=== PATIENT | female | born 1960 | race Caucasian/White ===

== ENCOUNTER 2018-11-16 15:57 | Inpatient (IN) | payer MEDICAID, OTHER ==
[~2018-11-16] VITALS: Ht 167.6 cm; Wt 145.9 kg
--- NOTE | 2018-11-16 16:27 | NUR ---
AT BEDSIDE FOR ASSESSMENT
--- NOTE | 2018-11-16 16:43 | NUR ---
PT TAKEN FOR IMAGING
[2018-11-16] MEDS ORDERED: SODIUM CHLORIDE FLUSH 10ML SYR IVF ONE (17:00)
--- NOTE | 2018-11-16 17:30 | NUR ---
LABS COLLECTED. PT RESTING IN BED, ALL NEDS MET AT THIS TIME, CALL LIGHT WITHIN REACH
[2018-11-16 17:52] LABS: BASOPHILS # (AUTO) 0.01 x10^3/uL (0-0.1); BASOPHILS % (AUTO) 0 % (0-1); EOSINOPHILS # (AUTO) 0.22 x10^3/uL (0-0.4); EOSINOPHILS % (AUTO) 4 % (1-7); LYMPHOCYTES # (AUTO) 1.21 x10^3/uL (1-3.4); LYMPHOCYTES % (AUTO) 19 % (22-44); MD NO; MEAN CORPUSCULAR HEMOGLOBIN 28.8 pg (27.0-34.8); MEAN CORPUSCULAR HGB CONC 32.2 g/dL (32.4-35.8); MEAN CORPUSCULAR VOLUME 89.3 fL (80-100); MEAN PLATELET VOLUME 6.6 fL (7.4-10.4); MONOCYTES # (AUTO) 0.55 x10^3/uL (0.2-0.8); MONOCYTES % (AUTO) 9 % (2-9); NEUTROPHILS # (AUTO) 4.27 x10^3/uL (1.8-6.8); NEUTROPHILS % (AUTO) 68 % (42-75); PLATELET COUNT 277 x10^3/uL (130-400); RED BLOOD COUNT 4.92 x10^6/uL (3.82-5.3); RED CELL DISTRIBUTION WIDTH 15.3 % (9.6-15.2)
[2018-11-16 18:01] LABS: ALANINE AMINOTRANSFERASE 25 U/L (12-78); ALBUMIN 3.2 g/dL (3.4-5.0); ANION GAP 11 mmol/L (5-15); CALCIUM 8.3 mg/dL (8.5-10.1); CHLORIDE 106 mmol/L (98-107); CREATININE 6.42 mg/dL (0.55-1.02)
[2018-11-16 18:03] LABS: ALKALINE PHOSPHATASE 102 U/L (45-117); BILIRUBIN,TOTAL 0.3 mg/dL (0.2-1.0); TOTAL PROTEIN 7.7 g/dL (6.4-8.2)
--- NOTE | 2018-11-16 18:23 | NUR ---
ALL RESULTS BACK AT THIS TIME, CHART UP FOR RECHECK
[2018-11-16] MEDS ORDERED: SODIUM CHLORIDE 0.9% 1,000ML IVBOLUS ONE (18:30)
--- NOTE | 2018-11-16 18:44 | NUR ---
STRAIGHT CATH UA COLLECTED AND SENT TO LAB. FLUIDS STARTED PER OCT. PT HAS BECOME VERY SLEEPY, INTERMITTENT DISORIENTED LANGUAGE BUT THEN PTSTILL A&OX4 WHEN ASKED DIRECT QUESTIONS. SLIGHT HYPOTENSION, FLUIDS RUNNING. WILL CONTINUE TO MONITOR. CALL LIGHT WITHIN REACH. AWAITNG ADMIT ORDER AND TRANSPORT TO FLOOR
[2018-11-16] MEDS ORDERED: LISI40TA PO (18:48)
[2018-11-16] MEDS ORDERED: OXYC-307 PO (18:48)
[2018-11-16] MEDS ORDERED: MORP-52 PO (18:48)
[2018-11-16] MEDS ORDERED: gabapentin (18:48)
[2018-11-16 19:20] LABS: MICROSCOPIC INDICATED
[2018-11-16 19:25] LABS: CULTURE INDICATED? YES
--- NOTE | 2018-11-16 19:41 | NUR ---
ADDITIONAL ORDERS RECEIVED AT THIS TIME. THEN PT TO BE ADMITTED TO [facility]. PT CURRENTLY SLEEPING IN BED, RR EVEN AND UNLABORED. NADN. VSS. CALL LIGHT WITHIN REACH
--- NOTE | 2018-11-16 19:52 | NUR ---
RAD COMPLETED. AWAITING ADMIT ORDER AND TRANSPORT AT THIS TIME
[2018-11-16] MEDS ORDERED: SODIUM CHLORIDE FLUSH 10ML SYR IVF PRN (20:00)
--- NOTE | 2018-11-16 20:12 | NUR ---
REPORT GIVEN TO PAUL RN, PT READY FOR TRANSPORT TO FLOOR
[2018-11-16] MEDS ORDERED: POLYETHYLENE GLYCOL 17 GM PACKET PO PRN (20:30)
[2018-11-16] MEDS ORDERED: BISACODYL 10 MG SUPP PR PRN (20:30)
[2018-11-16] MEDS ORDERED: ONDANSETRON ODT 4 MG PO PRN (20:30)
[2018-11-16] MEDS ORDERED: ACETAMINOPHEN 325 MG TABLET PO PRN (20:30)
[2018-11-16 20:41] VITALS: BP 130/69
[2018-11-16] MEDS ORDERED: FLUCONAZOLE 200 MG/100 ML 100 ML IV ONE (21:00)
[2018-11-16 21:56] LABS: POTASSIUM,URINE RANDOM 22 mmol/L; SODIUM,URINE RANDOM 13 mmol/L
[2018-11-16 22:08] LABS: CHLORIDE,URINE RANDOM < 10 mmol/L
[2018-11-16] MEDS: SODIUM CHLORIDE 0.9% 1,000 ML IV SCH (22:53)
[2018-11-16] MEDS: HEPARIN 5,000 UNITS/ML, 1ML SQ SCH (22:56)
[2018-11-17 00:20] VITALS: BP 115/67
[2018-11-17 05:42] LABS: BASOPHILS # (AUTO) 0.02 x10^3/uL (0-0.1); BASOPHILS % (AUTO) 0 % (0-1); EOSINOPHILS # (AUTO) 0.48 x10^3/uL (0-0.4); EOSINOPHILS % (AUTO) 8 % (1-7); LYMPHOCYTES # (AUTO) 1.65 x10^3/uL (1-3.4); LYMPHOCYTES % (AUTO) 27 % (22-44); MD NO; MEAN CORPUSCULAR HGB CONC 32.2 g/dL (32.4-35.8); MEAN CORPUSCULAR VOLUME 90.1 fL (80-100); MEAN PLATELET VOLUME 6.6 fL (7.4-10.4); MONOCYTES # (AUTO) 0.75 x10^3/uL (0.2-0.8); MONOCYTES % (AUTO) 12 % (2-9); NEUTROPHILS # (AUTO) 3.18 x10^3/uL (1.8-6.8); NEUTROPHILS % (AUTO) 52 % (42-75); PLATELET COUNT 283 x10^3/uL (130-400); RED BLOOD COUNT 4.84 x10^6/uL (3.82-5.3); RED CELL DISTRIBUTION WIDTH 15.8 % (9.6-15.2)
[2018-11-17 05:53] LABS: CHLORIDE 110 mmol/L (98-107)
[2018-11-17 06:08] LABS: ALANINE AMINOTRANSFERASE 25 U/L (12-78); ALBUMIN 2.9 g/dL (3.4-5.0); ALKALINE PHOSPHATASE 98 U/L (45-117); ANION GAP 10 mmol/L (5-15); BILIRUBIN,TOTAL 0.5 mg/dL (0.2-1.0); CALCIUM 7.8 mg/dL (8.5-10.1); CREATININE 5.23 mg/dL (0.55-1.02); TOTAL PROTEIN 7.2 g/dL (6.4-8.2); TROPONIN I < 0.015 ng/mL (0.000-0.045)
[2018-11-17] MEDS: SODIUM CHLORIDE 0.9% 1,000 ML IV SCH (06:33)
[2018-11-17] MEDS: HEPARIN 5,000 UNITS/ML, 1ML SQ SCH ×3 (06:33→21:28)
[2018-11-17 07:17] VITALS: BP 105/59
[2018-11-17] MEDS: SENNA/DOCUSATE TABLET PO SCH (08:16)
[2018-11-17 11:41] LABS: TROPONIN I < 0.015 ng/mL (0.000-0.045)
[2018-11-17] MEDS: SODIUM BICARB 8.4%,50ML SYR. 75 MEQ in SODIUM CHLORIDE 0.45% 1,000 ML IV SCH (11:57)
[2018-11-17 13:17] VITALS: BP 137/77
[2018-11-17 19:18] VITALS: BP 152/63
[2018-11-17] MEDS ORDERED: FLUCONAZOLE 100MG/50ML 100 MG in BAG 1 EACH IV SCH (21:00)
[2018-11-17 22:40] VITALS: BP 178/74
[2018-11-17 22:41] VITALS: BP 157/70
[2018-11-18 00:21] VITALS: BP 163/80
[2018-11-18] MEDS: HEPARIN 5,000 UNITS/ML, 1ML SQ SCH ×2 (04:53→13:00)
[2018-11-18] MEDS: SODIUM BICARB 8.4%,50ML SYR. 75 MEQ in SODIUM CHLORIDE 0.45% 1,000 ML IV SCH (04:53)
[2018-11-18 06:38] LABS: BASOPHILS # (AUTO) 0.01 x10^3/uL (0-0.1); BASOPHILS % (AUTO) 0 % (0-1); EOSINOPHILS % (AUTO) 3 % (1-7); LYMPHOCYTES # (AUTO) 0.82 x10^3/uL (1-3.4); LYMPHOCYTES % (AUTO) 27 % (22-44); MD NO; MEAN CORPUSCULAR HEMOGLOBIN 29.7 pg (27.0-34.8); MEAN CORPUSCULAR HGB CONC 33.7 g/dL (32.4-35.8); MEAN PLATELET VOLUME 6.4 fL (7.4-10.4); MONOCYTES # (AUTO) 0.46 x10^3/uL (0.2-0.8); MONOCYTES % (AUTO) 15 % (2-9); NEUTROPHILS # (AUTO) 1.65 x10^3/uL (1.8-6.8); NEUTROPHILS % (AUTO) 54 % (42-75); PLATELET COUNT 215 x10^3/uL (130-400); RED BLOOD COUNT 4.47 x10^6/uL (3.82-5.3); RED CELL DISTRIBUTION WIDTH 15.4 % (9.6-15.2)
[2018-11-18 06:40] LABS: ALBUMIN 2.7 g/dL (3.4-5.0); ANION GAP 5 mmol/L (5-15); CALCIUM 8.4 mg/dL (8.5-10.1); CHLORIDE 114 mmol/L (98-107)
[2018-11-18 06:46] LABS: ALANINE AMINOTRANSFERASE 26 U/L (12-78); ALKALINE PHOSPHATASE 85 U/L (45-117); BILIRUBIN,TOTAL 0.4 mg/dL (0.2-1.0); CREATININE 1.56 mg/dL (0.55-1.02); TOTAL PROTEIN 6.8 g/dL (6.4-8.2)
[2018-11-18 06:55] VITALS: BP 159/78
[2018-11-18] MEDS: SENNA/DOCUSATE TABLET PO SCH (09:00)
[2018-11-18 11:13] LABS: CLOSTRIDIUM DIFFICILE ANTIGEN NEGATIVE; CLOSTRIDIUM DIFFICILE TOXIN NEGATIVE (Negative)
[2018-11-18 12:45] VITALS: BP 152/79
[2018-11-18] MEDS ORDERED: FLUC200T PO (14:28)
[2018-11-19] MEDS ORDERED: FLUCONAZOLE 200 MG TABLET PO SCH (09:00)
== END 2018-11-18 17:35 | disposition home or self-care (01) | DRG 683 ==
LOC: ED 17:57 → EDIP 19:45 → 4EST 20:36
PROVIDERS: ADMIT Family Medicine; ATTEND Family Medicine
PROC: 0T9B70Z Drainage of Bladder with Drainage Device, Via Natural or Artificial Opening (ICD-10-PCS; principal; 2018-11-16)
DX: N17.9 Acute kidney failure, unspecified (principal); G93.49 Other encephalopathy; E44.1 Mild protein-calorie malnutrition; Z68.43 Body mass index [BMI] 50.0-59.9, adult; E87.2 Acidosis; B48.8 Other specified mycoses; E11.9 Type 2 diabetes mellitus without complications; E66.01 Morbid (severe) obesity due to excess calories; E86.0 Dehydration; G89.29 Other chronic pain; I10 Essential (primary) hypertension; R09.02 Hypoxemia; N80.9 Endometriosis, unspecified; R29.6 Repeated falls; Z79.891 Long term (current) use of opiate analgesic; Z82.5 Family history of asthma and other chronic lower respiratory diseases; Z86.73 Personal history of transient ischemic attack (TIA), and cerebral infarction without residual deficits; Z90.710 Acquired absence of both cervix and uterus
CPT/HCPCS: 36415; 36600; 70450; 71045; 72110; 72220; 76770; 80053; 81001; 82140; 82436; 82570; 82803; 83735; 84100; 84133; 84300; 84484; 85025; 87040; 87086; 87324; 93005; 99285; G0378; J1644; Q0162; J1450; J7030